=== PATIENT | female | born 1985 | race Caucasian/White ===

== ENCOUNTER 2016-10-14 09:37 | Emergency (ER) | payer BC, OTHER ==
[2016-10-14 11:52] VITALS: BP 126/78
--- NOTE | 2016-10-14 22:36 | ER ---
DATE SEEN: 10/14/2016 TIME SEEN: The patient was seen at 1000 hours. CHIEF COMPLAINT: Vaginal bleeding. HISTORY OF PRESENT ILLNESS: This 30-year-old 3, para 1-1-0-1, last menstrual period 08/09/2016 (9 weeks ) had intercourse this morning and resulted in nonpainful postcoital vaginal bleeding, small amount. She is wondering if she is losing her . PAST MEDICAL HISTORY: Significant for 1 miscarriage. She states she is O negative. MEDICATIONS: She is on dextroamphetamine - Adderall for probable ADHD. SOCIAL HISTORY: Works at [employer]. Does not smoke or drink alcohol or use street drugs. Otherwise, the patient is healthy. REVIEW OF SYSTEMS: HEENT: Denies headaches, compromise in vision. CARDIORESPIRATORY: Denies chest pain, shortness of breath, or cough. ABDOMEN: Denies abdominal pain, nausea, vomiting, diarrhea, constipation, blood in the stool, black tarry stool, hepatitis, or reflux. : As noted above. MUSCULOSKELETAL: Denies aches, pains, arthralgia, or myalgia. NEUROLOGIC: Negative for stroke, seizures, or head injuries. PSYCHIATRIC: Negative. PHYSICAL EXAMINATION: VITAL SIGNS: Blood pressure 120/76, heart rate is 97, respirations 18, oxygen saturation 100% on room, and temperature 36.9 degrees centigrade. The patient's weight 81.6 kg. BMI 27.4. GENERAL: Alert woman, somewhat tearful and anxious. HEENT: She has notable to 2 studs of lip piercing in right bilateral lower lip. PERRLA intact. Pharynx without abnormality. Mucosa is moist. NECK: No cervical adenopathy. No thyromegaly. LUNGS: Clear to auscultation without rales, rhonchi, or wheezes. HEART: S1, S2. No irregular rate and rhythm. ABDOMEN: Soft. No guarding. No abdominal discomfort. No CVA percussion tenderness. PELVIC: Not performed. The patient would prefer to have an ultrasound. EXTREMITIES: Lower extremities without abnormality. Deep tendon reflexes normal in upper and lower extremities. Cranial nerves 2 through 12 intact. Oriented x3. PSYCHIATRIC: The patient is sad and is intermittently tearful. LABORATORY DATA: Pelvic ultrasound was performed, blighted ovum noted. Serum HCG was 1800. Urine, occasional bacteria, moderate squamous epithelial cells, 20 wbc's, 50 to 75 rbc's, large occult blood, and specific gravity 0.010. ASSESSMENT: 1. Incomplete with vaginal bleeding. 2. Blighted ovum. 3. Vaginal bleeding secondary to incomplete . 4. The patient is not O negative, she is O positive. The patient's blood was typed and screen. PLAN: 1. The patient's status of incomplete discussed with her, but she was quite sad and depressed over this, and had cried a great deal. 2. Follow up with doctor in 2 days. Repeat the quantitative serum HCG. 3. The patient is not O negative, so will not require RhoGAM the patient. 4. It is possible that the patient's HCG may climb, it is rare that does happen, but it can climb in spite of being low at this juncture in her presumed . /[id number] 2018 SOHAN/BURKE
--- NOTE | 2016-10-15 12:06 | US ---
INDICATION: First trimester bleeding. OB ULTRASOUND FIRST TRIMESTER: Utilizing transabdominal probe, multiple ultrasonic images were obtained, revealing the right ovary to measure 3.29 x 1.60 cm. The left ovary measured 2.35 x 1.52 cm. Neither ovary remarkable in appearance. No mass lesions or free fluid collections were suggested. No adnexal mass lesions specifically were seen. The uterus measured 8.52 x 4.24 x 6 cm. What appears to be an intrauterine gestation is noted. A definite pole was not seen. Endovaginal probe ultrasound will be necessary for further evaluation. IMPRESSION: Apparent intrauterine gestation. No definite pole identified - endovaginal probe ultrasound will be necessary for further evaluation. INDICATION: First trimester bleeding, unable to see pole. OB ULTRASOUND TRANSVAGINAL: Utilizing transvaginal probe, multiple ultrasonic images revealed no adnexal mass lesions or free fluid collections. Gestational sac size - intrauterine and in the fundal area - was compatible with approximately 6 weeks 5 days gestational age compared with the LMP GA of 9 weeks 3 days. This is a big discrepancy. Despite use of endovaginal probe, a pole was not identified. Also no heart motion could be identified. IMPRESSION: No definite pole or heart motion identified in this delayed - 6 week 5 day - intrauterine gestational sac. Findings suggest "blighted ovum"/early demise. MTDD
== END 2016-10-14 12:30 | disposition home or self-care (01) ==
LOC: FB.ED 09:37
DX: O03.4 Incomplete spontaneous abortion without complication (principal)
CPT/HCPCS: 36415; 76801; 76802; 76817; 76857; 81001; 84702; 86850; 86900; 86901; 99284

== ENCOUNTER 2016-10-29 07:01 | Day surgery (SDC) | payer OTHER ==
--- NOTE | 2016-10-28 18:51 | PREOP ---
ADMISSION DATE: 10/29/2016 CHIEF COMPLAINT: Incomplete miscarriage with persistent cramps and bleeding. HISTORY OF PRESENT ILLNESS: This patient is a 30-year-old female, 3, para 1-1-0-1, who was diagnosed with a blighted ovum on 10/15/2015 via ultrasound, since then she has had serial beta HCG levels that have declined and a repeat ultrasound on 10/22/2016 revealed persistent blighted ovum with tissue. The patient is continuing to have cramps, intermittent having bleeding and to the point now where she would like to "move on with her life." Risks and benefits of the surgical intervention have been discussed in detail and she would like to proceed. She was therefore scheduled for D and C. She has had no fever, chills, or night sweats. Denies any dysuria or hematuria. She at times pass clots, but does not feel like she has been passing any tissue. She has rather severe cramps at times that even with the use of ibuprofen are unrelenting. She denies any melena, hematochezia, hematemesis, hemoptysis, or hematuria. Has had no other complaints. She takes Adderall in the extended release form 30 mg daily and then 10 mg of immediate release in the afternoon, Zoloft 50 mg daily, and vitamin daily. ALLERGIES: Lamictal. SOCIAL HISTORY: She does not smoke or use alcohol. PAST MEDICAL HISTORY: Pertinent that she has had a previous miscarriage that resolved without surgical intervention a number of years ago. She had a section delivery on 04/2015 and has had a previous wisdom teeth extraction. FAMILY HISTORY: Father at age 41 from a farming accident. He apparently was otherwise in good health. Mother is age 57 and in good health. She has two living brothers, age 29 and 36, both in good health. REVIEW OF SYSTEMS: Full review of systems was negative except for that mentioned above. PHYSICAL EXAMINATION: VITAL SIGNS: At this time showed her to be afebrile. Blood pressure 108/66, pulse is 90 and regular, weight was 187.7 pounds. GENERAL: Well-developed, well-nourished female, in no acute distress. HEENT: Unremarkable. Mucous membranes are pink and moist. Thyroid was not enlarged. Trachea is midline. CHEST: Clear to auscultation and percussion. CARDIOVASCULAR: Revealed a normal S1 and S2 without murmur, rub, or gallop. ABDOMEN: Soft with a healed Pfannenstiel incisional scar. There was no specific point tenderness. No rebound or rigidity. Bowel sounds are normal. EXTREMITIES: Without clubbing, no edema. No ulcerations or areas of breakdown were noted. NEUROLOGIC: She was intact. IMPRESSION: Incomplete spontaneous miscarriage. PLAN: We discussed the risks and benefits of the surgical intervention at length and after long discussion, she agreed, she would like to proceed with this surgical intervention and not wait any longer to "get back to her life." The surgery was scheduled for tomorrow at 0800 hours and she will be kept n.p.o. after midnight. She will arrive at the hospital at 0645 hours for preparation and then proceed from there. /[id number] /BURKE
[2016-10-29] MEDS ORDERED: Lactated Ringers 1,000 ML IV SCH (07:22)
[2016-10-29] MEDS ORDERED: Sodium Chloride 0.9% 10 ML Syringe FLUSH PRN (07:22)
[2016-10-29] MEDS ORDERED: Midazolam 1 MG/ML 2 ML SDV IV ONE (08:00)
[2016-10-29] MEDS ORDERED: Ondansetron 4 MG/2 ML SDV IVPUSH ONE (08:00)
[2016-10-29] MEDS ORDERED: fentaNYL 100 MCG/2 ML SDV IV ONE (08:00)
[2016-10-29] MEDS ORDERED: Ketorolac 30 MG/ML SDV IVPUSH ONE (08:00)
[2016-10-29] MEDS ORDERED: Dexamethasone 4 MG/ML 5 ML MDV IVPUSH ONE (08:00)
[2016-10-29] MEDS ORDERED: Ketamine 500 mg/10 ML MDV IV ONE (08:00)
[2016-10-29] MEDS ORDERED: Propofol 200 MG/20 ML SDV IV ONE (08:00)
[2016-10-29 10:16] VITALS: BP 116/64
--- NOTE | 2016-10-29 12:13 | OR ---
DATE OF OPERATION: 10/30/2015 SURGEON: Fernando Smith MD PREOPERATIVE DIAGNOSIS: Incomplete spontaneous . POSTOPERATIVE DIAGNOSIS: Incomplete spontaneous . PROCEDURE: D and C. PROCEDURE IN DETAIL: After time-out was taken to identify the patient, patient date of , allergies, and appropriate procedure, she was placed in a dorsal lithotomy position under MAC anesthesia. The perineum was prepped and draped in a sterile manner. Bimanual exam was done revealing approximately eight-sized anteverted uterus with no adnexal masses. The cervix would easily accept a fingertip. Weighted vaginal speculum was placed and there was some placental tissue that was protruding out of the vagina, this was removed with forceps and sent to Pathology. The uterus was then sounded to 9 cm. The cervix would easily accept a #12 Hegar dilator. A 10 mm suction curette was then placed with a blunt-tipped and suction curettage was undertaken removing mild to moderate amount of tissue. A sharp curette was then placed into the uterine cavity and gently used to explore the entire cavity with very gentle curettage being undertaken. The familiar grating feeling was noted throughout the entire uterine cavity. The 10 mm suction curette was then placed back into the intrauterine space and suction was carried out with little or no tissue, whatsoever removed. Bleeding was well controlled. All instruments were removed and bimanual exam was redone. Uterus is approximately 6 to 8 weeks in size, again anteverted, and no adnexal masses or other abnormalities were noted. The sponge and needle counts were all correct x2, and the patient was awakened, alert and oriented. She tolerated the procedure well. Estimated blood loss was less than 25 mL. All instruments and sponges along with needles were accounted for. /[id number] /MODL
== END 2016-10-29 09:40 | disposition home or self-care (01) ==
LOC: FB.SDS 07:01
PROVIDERS: ATTEND Family Medicine
DX: O03.4 Incomplete spontaneous abortion without complication (principal); Z88.8 Allergy status to other drugs, medicaments and biological substances; Z98.890 Other specified postprocedural states
CPT/HCPCS: 59812; 88305; J1100; J1885; J2250; J2405; J2704; J3010; J7120

== ENCOUNTER 2017-10-11 19:19 | Inpatient (IN) | payer BC, MEDICAID ==
[2017-10-11] MEDS ORDERED: Nalbuphine 10 MG/1 ML Vial IM ONE (21:33)
[2017-10-11] MEDS ORDERED: Scopolamine 1.5 MG Transdermal Patch TRDERM ONE (21:53)
[2017-10-11] MEDS ORDERED: Citric Acid/Sodium Citrate Solution 30 ML Cup PO ONE (21:54)
[2017-10-11] MEDS ORDERED: Azithromycin 500 MG in Sodium Chloride 0.9% 250 ML IV ONE (22:11)
[2017-10-11] MEDS ORDERED: ceFAZolin 2 GM in Premix Bag 1 BAG IV ONE (22:11)
--- NOTE | 2017-10-11 22:13 | PCM.SN ---
- Free Text/Narrative Note: 31 yo wf who is 38W4D due to for a repeat c section on Tuesday. arrived tonight in active labor. for a c section. procedure and risks explained to the pt to include bleeding, infection injury to bowel, bladder and blood vessel as well as the baby. she asks us to proceed. all questions answered.
--- NOTE | 2017-10-11 22:25 | PCM.LDHP ---
L&D History of Present Illness - General Date of Service: 10/11/17 Admit Problem/Dx: Patient Status Order with Admit Dx/Problem 10/11/17 19:28 Admission Status [Patient Status] [ADT] Routine 10/11/17 21:35 Admission Status [Patient Status] [ADT] Routine Admission Diagnosis/Problem Admission Diagnosis/Problem -related examination Source of Information: Patient History Limitations: Reports: No Limitations - History of Present Illness Introduction:: 31 yo at 38weeks +,who presents in labor.Regular contractions. Scheduled for c section on 10/14/2017. Has stable ADHD on Meds.Upper normal ERAN on last US.Previous C section Timing/Duration: Reports: minutes: (2-3) Location, : Reports: Abdomen Severity: Moderate Context: Denies: Sick Contact - Related Data Allergies/Adverse Reactions: Allergies Allergy/AdvReac Type Severity Reaction Status Date / Time lamotrigine [From Lamictal] Allergy Rash Verified 10/11/17 21:55 Home Medications: Home Meds PNV95/Ferrous Fumarate/FA [ Tablet] 1 each PO DAILY 04/20/15 [History] Dextroamphetamine/Amphetamine [Adderall Xr 30 mg Capsule] 1 cap PO DAILY [History] Ibuprofen 600 mg PO Q6H #30 tablet 10/29/16 [Rx] Sertraline [Zoloft] 50 mg PO DAILY 10/29/16 [History] Past Medical History - Past Health History Medical/Surgical History: Denies Medical/Surgical History 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 Dermatologic History: Reports: Eczema - Infectious Disease History Infectious Disease History: Reports: Chicken Pox - Past Surgical History Female Surgical History: Reports: Section Social & Family History - Family History Family Medical History: Noncontributory Respiratory: Reports: COPD OBGYN: Reports: Neurological: Reports: CVA Psychiatric: Reports: Other (See Below) Other Psychiatric Family History: Alcholism Endocrine/Metabolic: Reports: Diabetes, Type I Oncologic: Reports: Non-Hodgkin's Lymphoma - Tobacco Use Smoking Status *Q: Former Smoker Years of Tobacco use: 10 Used Tobacco, but Quit: Yes Month/Year Tobacco Last Used: cannot remember - Caffeine Use Caffeine Use: Reports: None - Recreational Drug Use Recreational Drug Use: No H&P Review of Systems - Review of Systems: Review Of Systems: ROS reveals no pertinent complaints other than HPI. L&D Exam - Exam Exam: See Below - Vital Signs Vital Signs: Last Vital Signs Temp Pulse 87 10/11/17 19:28 Resp 17 10/11/17 19:28 BP 147/89 H 10/11/17 19:28 Pulse Ox 98 10/11/17 19:28 Weight: 108.409 kg - OB Specific Contraction Intensity: Mild to Moderate Movement: Active Heart Tones: Present Heart Rate (FHR) Variability: Moderate (6-25 bmp) - Jose Score Jose Score Cervix Position: Midposition Jose Score Effacement: 31-50% Jose Score Dilation: 1-2 cm Jose Score Infant's Station: -2 - Exam General: Alert, Oriented HEENT: PERRLA, Conjunctiva Clear, EACs Clear, EOMI, Hearing Intact, Mucosa Moist & [place], Nares Patent, Normal Nasal Septum, Posterior Pharynx Clear, TMs Clear Neck: Supple, Trachea Midline Lungs: Clear to Auscultation, Normal Respiratory Effort Cardiovascular: Regular Rate, Regular Rhythm GI/Abdominal Exam: Normal Bowel Sounds, Soft, Non-Tender, No Organomegaly, No Distention, No Abnormal Bruit, No Mass, Pelvis Stable Rectal Exam: Normal Exam, Normal Rectal Tone Genitourinary: Normal external exam, Normal bimanual exam, Normal speculum exam Back Exam: Normal Inspection, Full Range of Motion Extremities: Normal Inspection, Normal Range of Motion, Non-Tender, No Pedal Edema, Normal Capillary Refill Skin: Warm, Dry, Intact Neurological: Cranial Nerves Intact, Reflexes Equal Bilateral Psychiatric: Alert, Normal Affect, Normal Mood - Patient Data Lab Results Last 24 hrs: Laboratory Results - last 24 hr 10/11/17 Range/Units 20:35 Urine Color Yellow (YELLOW) Urine Appearance Clear (CLEAR) Urine pH 8.0 H (5.0-6.5) Ur Specific [place]ton 1.010 (1.010-1.025) Urine Protein Negative (NEGATIVE) mg/dL Urine Glucose (UA) Normal (NEGATIVE) mg/dL Urine Ketones Negative (NEGATIVE) mg/dL Urine Occult Blood Large H (NEGATIVE) Urine Nitrite Negative (NEGATIVE) Urine Bilirubin Negative (NEGATIVE) Urine Urobilinogen Normal (NEGATIVE) mg/dL Ur Leukocyte Esterase Negative (NEGATIVE) Urine RBC 0-5 (0) Urine WBC 0-5 (0) Ur Squamous Epith Cells Few H (NS,R,O) Urine Bacteria Rare H (NS) - Problem List (1) Term SNOMED Code(s): 31797906 ICD Code: Z34.80 - ENCOUNTER FOR SUPRVSN OF NORMAL , UNSP TRIMESTER Status: Acute Current Visit: Yes (2) Previous section SNOMED Code(s): 521013070 ICD Code: Z98.891 - HISTORY OF UTERINE SCAR FROM PREVIOUS SURGERY Status: Acute Current Visit: Yes (3) ADHD SNOMED Code(s): 454094319 ICD Code: F90.9 - ATTENTION-DEFICIT HYPERACTIVITY DISORDER, UNSPECIFIED TYPE Status: Acute Current Visit: Yes Qualifiers: Attention deficit-hyperactivity disorder type: combined inattentive- hyperactive Qualified Code(s): F90.2 - Attention-deficit hyperactivity disorder, combined type (4) H/O depression, currently SNOMED Code(s): 436810803 ICD Code: O99.89 - OTH DISEASES AND CONDITIONS COMPL PREG/CHLDBRTH; Z86.59 - PERSONAL HISTORY OF OTHER MENTAL AND BEHAVIORAL DISORDERS Status: Acute Current Visit: Yes Problem List Initiated/Reviewed/Updated: Yes Orders Last 24hrs: Active Orders 24 hr Category Date Time Status Admission Status [Patient Status] [ADT] Routine ADT 10/11/17 19:28 Active Admission Status [Patient Status] [ADT] Routine ADT 10/11/17 21:35 Active URINALYSIS W/MICROSCOPIC [UA W/MICROSCOPIC] [URIN] Lab 10/11/17 20:35 Ordered Routine Azithromycin [Zithromax] 500 mg Med 10/11/17 22:11 Active Sodium Chloride 0.9% [Normal Saline] 250 ml IV ONETIME ceFAZolin [Ancef] 2 gm Med 10/11/17 22:11 Active Premix Bag 1 bag IV ONETIME Medication Orders Azithromycin 500 mg/ Sodium (Chloride) 250 mls @ 250 mls/hr IV ONETIME ONE Stop: 10/11/17 23:10 Cefazolin Sodium/Dextrose 2 gm (/ Premix) 50 mls @ 100 mls/hr IV ONETIME ONE Stop: 10/11/17 22:40 Assessment/Plan Comment:: I discussed need for a repat C section. I beleive she is in labor,no need to wait for 10/14/2017. Proceed to OR tonight.
[2017-10-11] MEDS ORDERED: Lactated Ringers 1,000 ML IV ONE (22:30)
[2017-10-11] MEDS ORDERED: Morphine PF 10 MG/10 ML SDV ONE (22:30)
[2017-10-11] MEDS ORDERED: Ondansetron 4 MG/2 ML SDV IV PRN (23:50)
[2017-10-11] MEDS ORDERED: Naloxone 0.4 MG/ML SDV IVPUSH PRN (23:50)
[2017-10-11] MEDS ORDERED: ePHEDrine 50 MG/ML SDV IVPUSH PRN (23:50)
--- NOTE | 2017-10-11 23:59 | PCM.OPNOTE ---
- General Post-Op/Procedure Note Date of Surgery/Procedure: 10/11/17 Operative Procedure(s): c section Findings: term male CODY presentation APGARS 8/9 Pre Op Diagnosis: hx of previous c section Post-Op Diagnosis: Same Anesthesia Technique: Spinal Primary Surgeon: Dmitry Londono Secondary Surgeon: Lester Sylvester Anesthesia Provider: Van Jung Pathology: plancenta Output, Urine Amount: 300 EBL in mLs: 500 Complications: None Condition: Good Free Text/Narrative:: see dictation
[2017-10-12] MEDS: Ketorolac 30 MG/ML SDV IVPUSH SCH ×3 (01:16→09:04)
--- NOTE | 2017-10-12 01:27 | OR ---
DATE OF OPERATION: 10/12/2017 SURGEON: Dmitry Londono MD CANDLE MAKER: Lester Sylvester MD PROCEDURE PERFORMED: section. PREOPERATIVE DIAGNOSES: 1. Term infant. 2. History of previous section. POSTOPERATIVE DIAGNOSES: 1. Term . 2. History of previous section. INDICATIONS FOR PROCEDURE: This is a 31-year-old white female, who is a G4, P2, spontaneous AB 2 white female, who presents at 38 weeks 4 days gestation in labor. She is scheduled for a repeat on Tuesday, but as she was in labor this evening, it was felt that we should proceed with our section at this point. DESCRIPTION OF OPERATION: After an excellent spinal anesthetic was administered, the patient was prepped and draped in the usual sterile manner. After a pinch test to ensure excellent anesthesia, an incision was made through the previous scar. The underlying subcu fat was divided using electrocautery. The fascia was exposed, incised, and transected out laterally involving the external and internal oblique muscles. The midline was grasped, elevated, and incised, and the abdominal cavity was entered. Using sharp dissection, a bladder flap was raised, and the bladder was retracted inferiorly. An incision was then made at the lower section of the uterus. A large amount of amniotic fluid was obtained. The presentation was noted to be CODY. The head was delivered. The nuchal cord was reduced, and the anterior and then posterior shoulders were delivered. After aspirating the oropharyngeal airway, the umbilical cord was clamped and divided, and the child was passed off the field. After obtaining a sample of cord blood, the placenta was delivered and passed off the field. Extraplacental membranes were also removed, and the uterus was wiped clean. A Pitocin drip was started, and the uterus incision was closed in 2 layers with #1 Vicryl, first consisting of a running interlocking suture, followed by a running Lembert suture. After assuring excellent hemostasis, the pelvis was irrigated, and the uterus was returned to normal anatomic position. The fascia was then closed with a running #1 Vicryl. The subcu fat and Sukumar fascia were approximated with a running #3 Vicryl, and a #3 Vicryl was used to close the skin. COUNTS: Needle, sponge, and instrument counts were reported as correct. SCORE: Reported to be 8 and 9 nine respectively. ESTIMATED BLOOD LOSS: 500 mL. URINE OUTPUT: 300 mL. FLUIDS: She received a total of 1200 mL of crystalloid. /[id number] AMELIE/BURKE JOHNSON
[2017-10-12] MEDS: Lactated Ringers 1,000 ML IV SCH ×2 (03:00→09:36)
[2017-10-12] MEDS ORDERED: Ketorolac 30 MG/ML SDV IVPUSH PRN (09:34)
[2017-10-12] MEDS: Sertraline 50 MG Tab PO SCH (09:35)
--- NOTE | 2017-10-12 11:53 | PCM.PNPP ---
- General Info Date of Service: 10/12/17 - Review of Systems General: Reports: No Symptoms Pulmonary: Reports: No Symptoms Cardiovascular: Reports: No Symptoms Gastrointestinal: Denies: Abdominal Pain, Flatus - Patient Data Vital Signs - Most Recent: Last Vital Signs Temp 36.7 C 10/12/17 04:00 Pulse 87 10/12/17 04:00 Resp 17 10/12/17 04:00 BP 142/84 H 10/12/17 04:00 Pulse Ox 98 10/12/17 04:00 Weight - Most Recent: 108.409 kg I&O - Last 24 Hours: Intake & Output 10/11/17 10/12/17 10/12/17 22:59 06:59 14:59 Intake Total 806 400 Output Total 850 Balance -44 400 Lab Results - Last 24 Hours: Laboratory Results - last 24 hr 10/11/17 10/12/17 Range/Units 20:35 06:21 WBC 10.6 (4.5-12.0) X10-3/uL RBC 3.60 (3.23-5.20) x10(6)uL Hgb 9.8 L (11.5-15.5) g/dL Hct 29.9 L (30.0-51.3) % MCV 83.0 (80-96) fL MCH 27.3 L (27.7-33.6) pg MCHC 32.8 (32.2-35.4) g/dL RDW 17.0 H (11.5-15.5) % Plt Count 199 (125-369) X10(3)uL MPV 9.6 (7.4-10.4) fL Add Manual Diff Yes Neutrophils % (Manual) 80 (46-82) % Lymphocytes % (Manual) 19 (13-37) % Monocytes % (Manual) 1 L (4-12) % Urine Color Yellow (YELLOW) Urine Appearance Clear (CLEAR) Urine pH 8.0 H (5.0-6.5) Ur Specific [place] 1.010 (1.010-1.025) Urine Protein Negative (NEGATIVE) mg/dL Urine Glucose (UA) Normal (NEGATIVE) mg/dL Urine Ketones Negative (NEGATIVE) mg/dL Urine Occult Blood Large H (NEGATIVE) Urine Nitrite Negative (NEGATIVE) Urine Bilirubin Negative (NEGATIVE) Urine Urobilinogen Normal (NEGATIVE) mg/dL Ur Leukocyte Esterase Negative (NEGATIVE) Urine RBC 0-5 (0) Urine WBC 0-5 (0) Ur Squamous Epith Cells Few H (NS,R,O) Urine Bacteria Rare H (NS) Med Orders - Current: Current Medications Ephedrine Sulfate (Ephedrine Sulfate) 5 mg IVPUSH ASDIRECTED PRN PRN Reason: Other Lactated Ringer's (Ringers, Lactated) 1,000 mls @ 150 mls/hr IV ASDIRECTED [facility] Last Admin: 10/12/17 09:36 Dose: 150 mls/hr Ketorolac Tromethamine (Toradol) 30 mg IVPUSH Q8H PRN PRN Reason: Pain Stop: 10/16/17 23:53 Last Admin: 10/12/17 10:06 Dose: 30 mg Naloxone HCl (Narcan) 0.1 mg IVPUSH ONETIME PRN PRN Reason: Respiratory Depression Non-Formulary Medication (Dextroamphetamine/Amphetamine [Adderall Xr 30 Mg Capsule]) 1 cap PO DAILY [facility] Ondansetron HCl (Zofran) 4 mg IV Q4H PRN PRN Reason: Nausea/Vomiting Oxycodone/Acetaminophen (Percocet 325-5 Mg) 2 tab PO Q4H PRN PRN Reason: Pain (moderate 4-6) Sertraline HCl (Zoloft) 50 mg PO DAILY [facility] Last Admin: 10/12/17 09:35 Dose: 50 mg Discontinued Medications Citric Acid/Sodium Citrate (Bicitra Solution) 30 ml PO ONETIME ONE Stop: 10/11/17 21:55 Last Admin: 10/11/17 22:20 Dose: 30 ml Azithromycin 500 mg/ Sodium (Chloride) 250 mls @ 250 mls/hr IV ONETIME ONE Stop: 10/11/17 23:10 Last Admin: 10/11/17 22:55 Dose: 250 mls/hr Cefazolin Sodium/Dextrose 2 gm (/ Premix) 50 mls @ 100 mls/hr IV ONETIME ONE Stop: 10/11/17 22:40 Last Admin: 10/11/17 22:22 Dose: 100 mls/hr Ketorolac Tromethamine (Toradol) 30 mg IVPUSH Q8H [facility] Stop: 10/16/17 23:53 Last Admin: 10/12/17 09:04 Dose: Not Given Nalbuphine HCl (Nubain) 10 mg IM ONETIME ONE Stop: 10/11/17 21:34 Last Admin: 10/11/17 21:45 Dose: Not Given Scopolamine (Transderm-Scop) 1.5 mg TRDERM ONETIME ONE Stop: 10/11/17 21:54 Last Admin: 10/11/17 22:19 Dose: 1.5 mg - Infant Interaction Support Person: - Recovery Exam Fundal Tone: Firm Fundal Level: 1 Fingerbreadths Above Umbilicus Fundal Placement: Midline Lochia Amount: Small Lochia Color: Rubra/Red Perineum Description: Intact, Minimal Bruising/Swelling, Edematous Episiotomy/Laceration: None Bladder Status: Indwelling Catheter in Place Urinary Elimination: Indwelling Catheter - Exam Lungs: Clear to Auscultation, Normal Respiratory Effort Cardiovascular: Regular Rate, Regular Rhythm GI/Abdominal Exam: Soft, Abnormal Bowel Sounds (hypoactive ) Skin: Warm, Dry, Intact Wound/Incisions: Dressing Dry and Intact - Problem List Review Problem List Initiated/Reviewed/Updated: Yes - My Orders Last 24 Hours: My Active Orders 10/11/17 23:45 Lactated Ringers [Ringers, Lactated] 1,000 ml IV ASDIRECTED 10/11/17 23:50 Ambulate [RC] PER UNIT ROUTINE Communication Order [RC] Per Unit Routine Communication Order [RC] Per Unit Routine Communication Order [RC] Per Unit Routine Cooling Warming Measures [RC] ASDIRECTED Intake and Output [RC] Q4H Notify Provider Vital Signs [RC] ASDIRECTED Vital Signs [RC] Q4HR Wound Care [RC] QSHIFT Acetaminophen/oxyCODONE [Percocet 325-5 MG] 2 tab PO Q4H PRN Naloxone [Narcan] 0.1 mg IVPUSH ONETIME PRN Ondansetron [Zofran] 4 mg IV Q4H PRN ePHEDrine [ePHEDrine Sulfate] 5 mg IVPUSH ASDIRECTED PRN Assess Lochia [WOMSER] Per Unit Routine Assess Uterine Involution [WOMSER] Per Unit Routine Breast Pump [WOMSER] Per Unit Routine DVT/VTE Prophylaxis Reflex [OM.PC] Routine Sequential Compression Device [OM.PC] Routine Resuscitation Status Routine 10/11/17 23:51 RT Incentive Spirometry [RC] Q2HWA Heat Therapy [OM.PC] Per Unit Routine Ice Therapy [OM.PC] Per Unit Routine 10/11/17 23:53 Antiembolic Devices [RC] .Routine VTE/DVT Education [RC] Click to Edit 10/12/17 09:00 Dextroamphetamine/Amphetamine [Adderall Xr 30 mg Capsule] 1 cap PO DAILY Sertraline [Zoloft] 50 mg PO DAILY 10/12/17 09:34 DC Zavala Catheter [Urinary Catheter Removal] [RC] Per Unit Routine Ketorolac [Toradol] 30 mg IVPUSH Q8H PRN - Assessment Assessment:: doing well - Plan Plan:: zavala d/c'd will decrease iv rate.
[2017-10-12] MEDS: Acetaminophen/oxyCODONE 325-5 MG Tab PO PRN ×2 (16:19→21:03)
[2017-10-13] MEDS: Acetaminophen/oxyCODONE 325-5 MG Tab PO PRN ×2 (04:12→09:09)
[2017-10-13] MEDS: Sertraline 50 MG Tab PO SCH (09:09)
--- NOTE | 2017-10-13 10:39 | PCM.DCSUM1 ---
Discharge Summary - Hospital Course Free Text/Narrative:: Pt admitted in labor and was taken to the OR for a c section. Was passing flatus on the next morning less than 24 hrs. She was advanced from a clear liquid to a regular diet. This she has tolerated. Johnson was removed the day of surgery and she has maintained good u/o since surgery. she is demonstrating adequate pain control today and would like to go home. - Discharge Data Discharge Date: 10/13/17 Discharge Disposition: Home, Self-Care 01 Condition: Good - Discharge Diagnosis/Problem(s) (1) S/P repeat low transverse SNOMED Code(s): 774932624, 869841298, 169384210, 286556348 ICD Code: Z98.891 - HISTORY OF UTERINE SCAR FROM PREVIOUS SURGERY Status: Acute Current Visit: Yes - Patient Summary/Data Operative Procedure(s) Performed: c section Complications: none - Patient Instructions Diet: Usual Diet as Tolerated Activity: No Lifting Over 25 Pounds Driving: Do Not Drive Showering/Bathing: May Shower Wound/Incision, Other: dressing off later today. Notify Provider of: Fever, Increased Pain, Swelling and Redness - Discharge Plan Home Medications: Home Meds PNV95/Ferrous Fumarate/FA [ Tablet] 1 each PO DAILY 04/20/15 [History] Dextroamphetamine/Amphetamine [Adderall Xr 30 mg Capsule] 1 cap PO DAILY [History] Ibuprofen 600 mg PO Q6H #30 tablet 10/29/16 [Rx] Sertraline [Zoloft] 50 mg PO DAILY 10/29/16 [History] Patient Handouts: , Baby Blues, Hand Washing, Easy-to- Read, Delivery, Care After, Care After Delivery, Venous Thromboembolism Prevention Referrals: Dmitry Londono MD [Physician] - 10/18/17 - Discharge Summary/Plan Comment DC Time >30 min.: No - Patient Data Vitals - Most Recent: Last Vital Signs Temp 36.6 C 10/13/17 04:10 Pulse 72 10/13/17 04:10 Resp 18 10/13/17 04:10 BP 122/75 10/13/17 04:10 Pulse Ox 98 10/13/17 04:10 Weight - Most Recent: 108.409 kg I&O - Last 24 hours: Intake & Output 10/12/17 10/13/17 10/13/17 22:59 06:59 14:59 Output Total 1900 Balance -1900 Med Orders - Current: Current Medications Ephedrine Sulfate (Ephedrine Sulfate) 5 mg IVPUSH ASDIRECTED PRN PRN Reason: Other Ketorolac Tromethamine (Toradol) 30 mg IVPUSH Q8H PRN PRN Reason: Pain Stop: 10/16/17 23:53 Last Admin: 10/12/17 10:06 Dose: 30 mg Naloxone HCl (Narcan) 0.1 mg IVPUSH ONETIME PRN PRN Reason: Respiratory Depression Non-Formulary Medication (Dextroamphetamine/Amphetamine [Adderall Xr 30 Mg Capsule]) 1 cap PO DAILY [facility] Last Admin: 10/13/17 09:31 Dose: Not Given Ondansetron HCl (Zofran) 4 mg IV Q4H PRN PRN Reason: Nausea/Vomiting Oxycodone/Acetaminophen (Percocet 325-5 Mg) 2 tab PO Q4H PRN PRN Reason: Pain (moderate 4-6) Last Admin: 10/13/17 09:09 Dose: 2 tab Sertraline HCl (Zoloft) 50 mg PO DAILY [facility] Last Admin: 10/13/17 09:09 Dose: 50 mg Discontinued Medications Citric Acid/Sodium Citrate (Bicitra Solution) 30 ml PO ONETIME ONE Stop: 10/11/17 21:55 Last Admin: 10/11/17 22:20 Dose: 30 ml Azithromycin 500 mg/ Sodium (Chloride) 250 mls @ 250 mls/hr IV ONETIME ONE Stop: 10/11/17 23:10 Last Admin: 10/11/17 22:55 Dose: 250 mls/hr Cefazolin Sodium/Dextrose 2 gm (/ Premix) 50 mls @ 100 mls/hr IV ONETIME ONE Stop: 10/11/17 22:40 Last Admin: 10/11/17 22:22 Dose: 100 mls/hr Lactated Ringer's (Ringers, Lactated) 1,000 mls @ 125 mls/hr IV ASDIRECTED [facility] Last Admin: 10/12/17 09:36 Dose: 150 mls/hr Ketorolac Tromethamine (Toradol) 30 mg IVPUSH Q8H [facility] Stop: 10/16/17 23:53 Last Admin: 10/12/17 09:04 Dose: Not Given Nalbuphine HCl (Nubain) 10 mg IM ONETIME ONE Stop: 10/11/17 21:34 Last Admin: 10/11/17 21:45 Dose: Not Given Scopolamine (Transderm-Scop) 1.5 mg TRDERM ONETIME ONE Stop: 10/11/17 21:54 Last Admin: 10/11/17 22:19 Dose: 1.5 mg
[2017-10-13] MEDS ORDERED: Bisacodyl 10 MG Supp RECTAL ONE (10:40)
--- NOTE | 2017-10-13 10:42 | PCM.PNPP ---
- General Info Date of Service: 10/13/17 Functional Status: Reports: Pain Controlled, Tolerating Diet, Ambulating, Urinating - Review of Systems General: Reports: No Symptoms Pulmonary: Reports: No Symptoms Cardiovascular: Reports: No Symptoms Gastrointestinal: Reports: No Symptoms - Patient Data Vital Signs - Most Recent: Last Vital Signs Temp 36.6 C 10/13/17 04:10 Pulse 72 10/13/17 04:10 Resp 18 10/13/17 04:10 BP 122/75 10/13/17 04:10 Pulse Ox 98 10/13/17 04:10 Weight - Most Recent: 108.409 kg I&O - Last 24 Hours: Intake & Output 10/12/17 10/13/17 10/13/17 22:59 06:59 14:59 Output Total 1900 Balance -1900 Med Orders - Current: Current Medications Ephedrine Sulfate (Ephedrine Sulfate) 5 mg IVPUSH ASDIRECTED PRN PRN Reason: Other Ketorolac Tromethamine (Toradol) 30 mg IVPUSH Q8H PRN PRN Reason: Pain Stop: 10/16/17 23:53 Last Admin: 10/12/17 10:06 Dose: 30 mg Naloxone HCl (Narcan) 0.1 mg IVPUSH ONETIME PRN PRN Reason: Respiratory Depression Non-Formulary Medication (Dextroamphetamine/Amphetamine [Adderall Xr 30 Mg Capsule]) 1 cap PO DAILY [facility] Last Admin: 10/13/17 09:31 Dose: Not Given Ondansetron HCl (Zofran) 4 mg IV Q4H PRN PRN Reason: Nausea/Vomiting Oxycodone/Acetaminophen (Percocet 325-5 Mg) 2 tab PO Q4H PRN PRN Reason: Pain (moderate 4-6) Last Admin: 10/13/17 09:09 Dose: 2 tab Sertraline HCl (Zoloft) 50 mg PO DAILY [facility] Last Admin: 10/13/17 09:09 Dose: 50 mg Discontinued Medications Citric Acid/Sodium Citrate (Bicitra Solution) 30 ml PO ONETIME ONE Stop: 10/11/17 21:55 Last Admin: 10/11/17 22:20 Dose: 30 ml Azithromycin 500 mg/ Sodium (Chloride) 250 mls @ 250 mls/hr IV ONETIME ONE Stop: 10/11/17 23:10 Last Admin: 10/11/17 22:55 Dose: 250 mls/hr Cefazolin Sodium/Dextrose 2 gm (/ Premix) 50 mls @ 100 mls/hr IV ONETIME ONE Stop: 10/11/17 22:40 Last Admin: 10/11/17 22:22 Dose: 100 mls/hr Lactated Ringer's (Ringers, Lactated) 1,000 mls @ 125 mls/hr IV ASDIRECTED [facility] Last Admin: 10/12/17 09:36 Dose: 150 mls/hr Ketorolac Tromethamine (Toradol) 30 mg IVPUSH Q8H [facility] Stop: 10/16/17 23:53 Last Admin: 10/12/17 09:04 Dose: Not Given Nalbuphine HCl (Nubain) 10 mg IM ONETIME ONE Stop: 10/11/17 21:34 Last Admin: 10/11/17 21:45 Dose: Not Given Scopolamine (Transderm-Scop) 1.5 mg TRDERM ONETIME ONE Stop: 10/11/17 21:54 Last Admin: 10/11/17 22:19 Dose: 1.5 mg - Interaction Disposition, : in Room with Family Support Person: - Recovery Exam Fundal Tone: Firm Fundal Level: At Umbilicus Fundal Placement: Midline Lochia Amount: Small Lochia Color: Rubra/Red Perineum Description: Intact, Minimal Bruising/Swelling, Edematous Episiotomy/Laceration: None Bladder Status: Voiding Urinary Elimination: Voided - Exam General: Alert, Oriented HEENT: Pupils Equal Lungs: Clear to Auscultation, Normal Respiratory Effort Cardiovascular: Regular Rate, Regular Rhythm GI/Abdominal Exam: Normal Bowel Sounds, Soft, Non-Tender Skin: Warm, Dry, Intact Wound/Incisions: Dressing Dry and Intact - Problem List & Annotations (1) S/P repeat low transverse SNOMED Code(s): 032893424, 975644567, 195731031, 379035124 Code(s): Z98.891 - HISTORY OF UTERINE SCAR FROM PREVIOUS SURGERY Status: Acute Current Visit: Yes - Problem List Review Problem List Initiated/Reviewed/Updated: Yes - My Orders Last 24 Hours: My Active Orders 10/12/17 17:04 Convert IV to Saline Lock [OM.PC] Routine 10/13/17 10:40 Bisacodyl [Dulcolax] 10 mg RECTAL ONETIME ONE 10/13/17 Dinner Regular Diet [DIET] - Assessment Assessment:: ready for discharge - Plan Plan:: dulcolox suppository discharge today.
[2017-10-13 10:47] VITALS: BP 122/79
== END 2017-10-13 14:10 | disposition home or self-care (01) | DRG 540 ==
LOC: FB.OB 19:19 → INTOOBSV 19:19 → OBSVTOIN 21:35 → FB.OB 21:35
PROVIDERS: ADMIT Surgery; ATTEND Family Medicine
PROC: 10D00Z1 Extraction of Products of Conception, Low, Open Approach (ICD-10-PCS; principal; 2017-10-11)
DX: O34.211 Maternal care for low transverse scar from previous cesarean delivery (principal); O69.1XX0 Labor and delivery complicated by cord around neck, with compression, not applicable or unspecified; F90.9 Attention-deficit hyperactivity disorder, unspecified type; Z3A.38 38 weeks gestation of pregnancy; Z37.0 Single live birth; Z79.899 Other long term (current) drug therapy; Z88.8 Allergy status to other drugs, medicaments and biological substances; Z87.891 Personal history of nicotine dependence; Z86.59 Personal history of other mental and behavioral disorders
CPT/HCPCS: 36415; 81001; 85025; 94150; 99211; A9270-GY; J0456; J0690; J1885; J2270; J7050; J7120

== ENCOUNTER 2019-03-03 19:28 | Inpatient (IN) | payer BC, MEDICAID ==
[2019-03-03] MEDS ORDERED: ceFAZolin 1 GM Vial IVPUSH STA (21:16)
[2019-03-03] MEDS ORDERED: Citric Acid/Sodium Citrate Solution 30 ML Cup PO STA (21:16)
[2019-03-03] MEDS ORDERED: Scopolamine 1.5 MG Transdermal Patch TRDERM ONE (21:17)
[2019-03-03] MEDS ORDERED: Lactated Ringers 1,000 ML IV SCH (21:30)
[2019-03-03] MEDS ORDERED: Sodium Chloride 0.9% 10 ML Syringe FLUSH PRN (21:33)
[2019-03-03] MEDS ORDERED: diphenhydrAMINE 50 MG/ML SDV IVPUSH PRN (23:12)
[2019-03-03] MEDS ORDERED: Naloxone 0.4 MG/ML SDV IVPUSH PRN (23:12)
[2019-03-03] MEDS ORDERED: ePHEDrine 50 MG/ML SDV IVPUSH PRN (23:12)
[2019-03-04] MEDS ORDERED: Nalbuphine 10 MG/1 ML Vial IVPUSH PRN (00:01)
[2019-03-04] MEDS ORDERED: Naloxone 0.4 MG/ML SDV IVPUSH PRN (00:01)
[2019-03-04] MEDS ORDERED: Ondansetron 4 MG/2 ML SDV IVPUSH PRN (00:01)
[2019-03-04] MEDS ORDERED: diphenhydrAMINE 50 MG/ML SDV IV PRN (00:01)
--- NOTE | 2019-03-04 02:45 | OR ---
DATE OF OPERATION: 03/03/2019 SURGEON: Lester Sylvester MD GRAVEL INSPECTOR: Anthony Pfeiffer MD. PREOPERATIVE DIAGNOSES: 1. Intrauterine at 37 weeks and 4 days. 2. Polyhydramnios. 3. LGA (vlxbz-ppa-xqhazwgymus-age). 4. Adderall use in . 5. Repeat section. POSTOPERATIVE DIAGNOSES: 1. Intrauterine at term. 2. Repeat lower uterine segment section. 3. Polyhydramnios. 4. LGA (huvsy-iay-qixheuodaws-age). PROCEDURE PERFORMED: Repeat low transverse section. ANESTHESIA: Epidural. ESTIMATED BLOOD LOSS: 650 mL. COMPLICATIONS: None. FINDINGS: 1. A female infant in cephalic presentation. 2. Extensive adhesions. INDICATIONS: This is a 33-year-old female who came in to Labor at 37 and half weeks. She was scheduled for repeat next week. She has had polyhydramnios during the and has used Adderall during . She has otherwise been unremarkable. The procedure was described to the patient in detail including the possible risks of bleeding, infection, injury to the surrounding organs, and possible need for further surgery. Informed consent was obtained accordingly. DESCRIPTION OF PROCEDURE: She was taken to the OR, where epidural anesthesia was placed and found to be adequate. She was prepped and draped in the usual sterile fashion. A Pfannenstiel incision was made along the previous scar and carried to the underlying layer of fascia using Smith scissors. The fascia was incised in the middle by scalpel and the underlying rectus muscles were dissected off bluntly and using Smith scissors repeating that in the inferior portion as well. The rectus muscle was dissected in the middle and the uterus was entered bluntly. A bladder blade was inserted and bladder reflection of the vesicouterine peritoneum was placed. Using a knife, a lower uterine transverse incision was made along the lower portion of the uterus. This was extended using the surgeon's fingers. The baby's head was delivered. The rest of the baby delivered without incident. A nuchal cord was encountered and reduced. After the baby was handed to the awaiting nurses, cord blood was obtained and the rest of the placenta was removed intact. The uterus was exteriorized and the incision closed in 2 layers. One oarejr-po-mimcj stitch was needed to complete hemostasis. It was returned to the abdomen and irrigation was performed. Thereafter, the rectus fascia was closed. Some difficulty encountered during the closure with some adhesions, but this was reduced and closed adequately with 0 Vicryl. The subcutaneous tissue and skin were closed with a running stitch of 3-0. The sponges, lap, and instruments count was correct x3. The patient was stable in the operating room and was taken to the recovery afterwards in stable condition. /[id number] ISAC/MODL
[2019-03-04] MEDS: Lactated Ringers 1,000 ML IV SCH ×3 (02:57→10:50)
[2019-03-04] MEDS: Ketorolac 30 MG/ML SDV IVPUSH SCH ×2 (04:33→11:13)
[2019-03-04] MEDS ORDERED: Ketorolac 30 MG/ML SDV IVPUSH PRN (05:00)
--- NOTE | 2019-03-04 14:39 | PCM.PNPP ---
- General Info Date of Service: 03/04/19 Functional Status: Reports: Pain Controlled - Review of Systems General: Reports: No Symptoms HEENT: Reports: No Symptoms Pulmonary: Reports: No Symptoms Cardiovascular: Reports: No Symptoms Gastrointestinal: Reports: No Symptoms Genitourinary: Reports: No Symptoms Musculoskeletal: Reports: No Symptoms Skin: Reports: No Symptoms Neurological: Reports: No Symptoms Psychiatric: Reports: No Symptoms - General Info Date of Service: 03/04/19 - Patient Data Vital Signs - Most Recent: Last Vital Signs Temp 97.7 F 03/03/19 23:18 Pulse 79 03/04/19 01:30 Resp 12 03/03/19 23:42 BP 115/72 03/04/19 01:30 Pulse Ox 100 03/03/19 23:42 Weight - Most Recent: 103.873 kg I&O - Last 24 Hours: Intake & Output 03/03/19 03/04/19 03/04/19 22:59 06:59 14:59 Intake Total 1507 Output Total 1000 850 Balance 507 -850 Lab Results - Last 24 Hours: Laboratory Results - last 24 hr 03/03/19 03/04/19 Range/Units 20:50 06:15 WBC 16.8 H (4.5-12.0) X10-3/uL RBC 3.51 (3.23-5.20) x10(6)uL Hgb 9.8 L (11.5-15.5) g/dL Hct 29.4 L (30.0-51.3) % MCV 83.6 (80-96) fL MCH 28.0 (27.7-33.6) pg MCHC 33.5 (32.2-35.4) g/dL RDW 16.0 H (11.5-15.5) % Plt Count 238 (125-369) X10(3)uL MPV 8.5 (7.4-10.4) fL Add Manual Diff Yes Neutrophils % (Manual) 86 H (46-82) % Band Neutrophils % 1 (0-6) % Lymphocytes % (Manual) 10 L (13-37) % Monocytes % (Manual) 3 L (4-12) % Anisocytosis Occasional Urine Color Yellow (YELLOW) Urine Appearance Clear (CLEAR) Urine pH 5.0 (5.0-6.5) Ur Specific [place] 1.020 (1.010-1.025) Urine Protein Negative (NEGATIVE) mg/dL Urine Glucose (UA) Normal (NORMAL) mg/dL Urine Ketones 15 H (NEGATIVE) mg/dL Urine Occult Blood Negative (NEGATIVE) Urine Nitrite Negative (NEGATIVE) Urine Bilirubin Negative (NEGATIVE) Urine Urobilinogen Normal (NEGATIVE) mg/dL Ur Leukocyte Esterase Negative (NEGATIVE) Urine RBC Not seen (0-5) Urine WBC 0-5 (0-5) Ur Squamous Epith Cells Moderate H (NS,R,O) Urine Bacteria Few H (NS) Med Orders - Current: Current Medications Diphenhydramine HCl (Benadryl) 25 mg IVPUSH Q6H PRN PRN Reason: Itching or Nausea Diphenhydramine HCl (Benadryl) 25 mg IV ONETIME PRN PRN Reason: Pruritus Ephedrine Sulfate (Ephedrine Sulfate) 5 mg IVPUSH ASDIRECTED PRN PRN Reason: Other Lactated Ringer's (Ringers, Lactated) 1,000 mls @ 125 mls/hr IV ASDIRECTED [facility] Last Admin: 03/03/19 21:37 Dose: 125 mls/hr Lactated Ringer's (Ringers, Lactated) 1,000 mls @ 250 mls/hr IV ASDIRECTED [facility] Last Admin: 03/04/19 10:50 Dose: 250 mls/hr Ketorolac Tromethamine (Toradol) 30 mg IVPUSH Q6H [facility] Stop: 03/08/19 23:20 Last Admin: 03/04/19 11:13 Dose: 30 mg Nalbuphine HCl (Nubain) 10 mg IVPUSH Q1H PRN PRN Reason: Pruritus Naloxone HCl (Narcan) 0.1 mg IVPUSH ONETIME PRN PRN Reason: Respiratory Depression Naloxone HCl (Narcan) 0.1 mg IVPUSH ONETIME PRN PRN Reason: Oversedation Ondansetron HCl (Zofran) 4 mg IVPUSH Q6H PRN PRN Reason: Nausea/Vomiting Sodium Chloride (Saline Flush) 10 ml FLUSH ASDIRECTED PRN PRN Reason: Keep Vein Open Discontinued Medications Cefazolin Sodium (Ancef) 2 gm IVPUSH ONETIME STA Stop: 03/03/19 21:17 Last Admin: 10/26/19 21:38 Dose: 2 gm Citric Acid/Sodium Citrate (Bicitra Solution) 30 ml PO ONETIME STA Stop: 03/03/19 21:17 Last Admin: 03/03/19 21:37 Dose: 30 ml Ketorolac Tromethamine (Toradol) 30 mg IVPUSH Q6H PRN PRN Reason: Pain Stop: 03/08/19 23:20 Scopolamine (Transderm-Scop) 1.5 mg TRDERM ONETIME ONE Stop: 03/03/19 21:18 Last Admin: 03/03/19 21:37 Dose: 1.5 mg - Infant Interaction Disposition, : [place] in Room with Family Support Person: - Recovery Exam Fundal Tone: Firm Fundal Level: At Umbilicus Fundal Placement: Midline Lochia Amount: Moderate Lochia Color: Rubra/Red Perineum Description: Edematous Episiotomy/Laceration: None Bladder Status: Indwelling Catheter in Place Urinary Elimination: Indwelling Catheter - Exam General: Alert, Oriented HEENT: Pupils Equal Neck: Supple Lungs: Clear to Auscultation, Normal Respiratory Effort Cardiovascular: Regular Rate, Regular Rhythm GI/Abdominal Exam: Normal Bowel Sounds, Soft, Non-Tender, No Organomegaly, No Distention, No Abnormal Bruit, No Mass, Pelvis Stable Extremities: Normal Inspection, Normal Range of Motion, Non-Tender, No Pedal Edema, Normal Capillary Refill Skin: Warm, Dry, Intact Wound/Incisions: Healing Well Neurological: No New Focal Deficit Psy/Mental Status: Alert, Normal Affect, Normal Mood - Problem List & Annotations (1) Previous section SNOMED Code(s): 737868859 Code(s): Z98.891 - HISTORY OF UTERINE SCAR FROM PREVIOUS SURGERY Status: Acute Current Visit: No (2) S/P repeat low transverse SNOMED Code(s): 506322784, 42582576, 498771009, 661740094, 900838495 Code(s): Z98.891 - HISTORY OF UTERINE SCAR FROM PREVIOUS SURGERY Status: Acute Current Visit: No (3) ADHD SNOMED Code(s): 489987663 Code(s): F90.9 - ATTENTION-DEFICIT HYPERACTIVITY DISORDER, UNSPECIFIED TYPE Status: Acute Current Visit: No Qualifiers: - Problem List Review Problem List Initiated/Reviewed/Updated: Yes - My Orders Last 24 Hours: My Active Orders 03/03/19 19:36 Resuscitation Status Routine 03/03/19 21:30 Lactated Ringers [Ringers, Lactated] 1,000 ml IV ASDIRECTED 03/03/19 21:33 Admission Status [Patient Status] [ADT] Routine Sodium Chloride 0.9% [Saline Flush] 10 ml FLUSH ASDIRECTED PRN Peripheral IV Insertion Adult [OM.PC] Routine 03/03/19 23:12 Intake and Output [RC] 06,14,22 RT Incentive Spirometry [RC] Q4HWA Vital Signs [RC] PER UNIT ROUTINE Naloxone [Narcan] 0.1 mg IVPUSH ONETIME PRN diphenhydrAMINE [Benadryl] 25 mg IVPUSH Q6H PRN ePHEDrine [ePHEDrine sulfate] 5 mg IVPUSH ASDIRECTED PRN 03/03/19 23:15 Lactated Ringers [Ringers, Lactated] 1,000 ml IV ASDIRECTED 03/04/19 05:00 Ketorolac [Toradol] 30 mg IVPUSH Q6H 03/04/19 14:37 Remove Johnson Catheter [Urinary Catheter Removal] [RC] Per Unit Routine Acetaminophen/oxyCODONE [Percocet 325-5 MG] 1 tab PO Q4H PRN 03/04/19 14:38 Discontinue Saline Lock [Peripheral IV Discontinue] [OM.PC] Routine 03/04/19 14:45 Ibuprofen [Motrin] 600 mg PO Q6H 03/04/19 Lunch Regular Diet [DIET] - Plan Plan:: Advance diet. DC Fluids and DC Johnson.Percocet for pain
[2019-03-04] MEDS: Acetaminophen/oxyCODONE 325-5 MG Tab PO PRN ×2 (15:40→21:03)
[2019-03-04] MEDS: Ibuprofen 600 MG Tab PO SCH ×2 (17:59→22:46)
[2019-03-05] MEDS: Ibuprofen 600 MG Tab PO SCH ×2 (05:46→10:54)
[2019-03-05] MEDS: Acetaminophen/oxyCODONE 325-5 MG Tab PO PRN ×2 (05:49→10:54)
[2019-03-05 08:43] VITALS: BP 125/66; PULSE 98
--- NOTE | 2019-03-05 14:02 | DISCH ---
DISCHARGE DATE: 03/05/2019 REASON FOR ADMISSION: Labor at term. DISCHARGE DIAGNOSES: 1. Repeat . 2. Attention deficit hyperactivity disorder. 3. Depression. BRIEF HISTORY AND HOSPITAL COURSE: A 33-year-old female was admitted at 37-1/2 weeks after complaining of uterine contractions. She was scheduled for an elective section on the . As such, we did the on the by myself and Dr. Pfeiffer. Postoperatively, she did very well, and today she has no complaints with the exception of some pain. The bleeding has improved. She has no constipation and she has been walking around for the last 24 hours. She asks to go home today. DISCHARGE MEDICATIONS: She will go home on; 1. Percocet 1 tablet every 6 hours p.r.n., 15 tablets. 2. Motrin 600 mg p.o. q.i.d. 3. She will also continue the regular home medications. FOLLOWUP: She will see me in 2 weeks. DISCHARGE TIME: 35 minutes. /[id number] ISAC/BURKE
[2019-03-05] MEDS ORDERED: Lactated Ringers 1,000 ML IV ONE (14:59)
[2019-03-05] MEDS ORDERED: Acetaminophen 1,000 MG/100 ML Infusion Bottle IV ONE (14:59)
[2019-03-05] MEDS ORDERED: Morphine PF 10 MG/10 ML SDV IV ONE (14:59)
[2019-03-05] MEDS ORDERED: Oxytocin 10 Units/1 ML SDV IV ONE (14:59)
[2019-03-05] MEDS ORDERED: Ketorolac 30 MG/ML SDV IVPUSH ONE (14:59)
[2019-03-05] MEDS ORDERED: Ondansetron 4 MG/2 ML SDV IVPUSH ONE (14:59)
[2019-03-05] MEDS ORDERED: Dexamethasone 4 MG/ML 5 ML MDV IVPUSH ONE (14:59)
[2019-03-05] MEDS ORDERED: Phenylephrine 1% 10 MG/ML SDV IV ONE (14:59)
[2019-03-05] MEDS ORDERED: Bupivacaine 0.75%/D5W 2 ML Amp INJECT ONE (14:59)
--- NOTE | 2019-03-07 09:56 | PCM.LDHP ---
L&D History of Present Illness - General Date of Service: 03/03/19 Admit Problem/Dx: Patient Status Order with Admit Dx/Problem 03/03/19 19:36 Patient Status [ADT] Routine 03/03/19 21:33 Admission Status [Patient Status] [ADT] Routine Admission Diagnosis/Problem Admission Diagnosis/Problem Source of Information: Patient History Limitations: Reports: No Limitations - History of Present Illness Introduction:: 33 yo at 37 and 1/2 weeks here because of active labor. Symptoms started earlier in the evening,and she reports contractions every 3-5 min. She is scheduled for an elective repeat C section on 03/07/2019. She has mild polyhydramnios, and ADHD,MDD ,stable. She takes Adderall,even during this .Denies vaginal leakage of fluid or bleeding. Timing/Duration: Reports: gradual onset Location, : Reports: Uterus Quality: Reports: Ache Pain Score: 7 Improves with: Reports: None Worsens with: Reports: None Associated Symptoms: Denies: vaginal bleeding, vaginal clots, vaginal tissue - Related Data Allergies/Adverse Reactions: Allergies Allergy/AdvReac Type Severity Reaction Status Date / Time lamotrigine [From Lamictal] Allergy Rash Verified 03/03/19 23:00 Home Medications: Home Meds PNV95/Ferrous Fumarate/FA [ Tablet] 1 each PO DAILY 04/20/15 [History] Dextroamphetamine/Amphetamine [Adderall Xr 30 mg Capsule] 1 cap PO DAILY [History] Sertraline [Zoloft] 50 mg PO DAILY 10/29/16 [History] Ibuprofen [Motrin] 600 mg PO Q6H PRN #28 tab 10/13/17 [Rx] Dextroamphetamine/Amphetamine [Adderall 10 mg Tablet] 10 mg PO DAILY 03/04/19 [ History] Acetaminophen/oxyCODONE [Percocet 325-5 MG] 1 tab PO Q4H PRN #15 tablet [Rx] Ibuprofen [Motrin] 600 mg PO Q6H tablet 03/05/19 [Rx] Past Medical History - Past Health History Medical/Surgical History: Denies 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 Dermatologic History: Reports: Eczema - Infectious Disease History Infectious Disease History: Reports: Chicken Pox - Past Surgical History Female Surgical History: Reports: Section Social & Family History - Family History Family Medical History: Noncontributory Respiratory: Reports: COPD OBGYN: Reports: Neurological: Reports: CVA Psychiatric: Reports: Other (See Below) Other Psychiatric Family History: Alcholism Endocrine/Metabolic: Reports: Diabetes, Type I Oncologic: Reports: Non-Hodgkin's Lymphoma - Tobacco Use Smoking Status *Q: Former Smoker Used Tobacco, but Quit: Yes Month/Year Tobacco Last Used: 2015 Second Hand Smoke Exposure: No - Caffeine Use Caffeine Use: Reports: Coffee - Recreational Drug Use Recreational Drug Use: No H&P Review of Systems - Review of Systems: Review Of Systems: ROS reveals no pertinent complaints other than HPI. L&D Exam - Exam Exam: See Below - Vital Signs Vital Signs: Last Vital Signs Temp 98.5 F 03/05/19 08:00 Pulse 98 03/05/19 08:00 Resp 17 03/05/19 08:00 BP 125/66 03/05/19 08:00 Pulse Ox 98 03/05/19 08:00 Weight: 103.873 kg - OB Specific Contraction Duration (sec): 30-50 Contraction Frequency (min): 2-6 Contraction Intensity: Mild to Moderate Movement: Active Heart Tones: Present Heart Rate (FHR) Variability: Moderate (6-25 bmp) Presentation: Right Occiput Anterior (FRITZ) - Jose Score Jose Score Cervix Position: Midposition Jose Score Consistency: Medium Jose Score Dilation: 1-2 cm - Exam General: Alert, Oriented HEENT: PERRLA, Conjunctiva Clear, EACs Clear, EOMI, Hearing Intact, Mucosa Moist & [place], Nares Patent, Normal Nasal Septum, Posterior Pharynx Clear, TMs Clear Neck: Supple, Trachea Midline Lungs: Clear to Auscultation, Normal Respiratory Effort Cardiovascular: Regular Rate, Regular Rhythm GI/Abdominal Exam: Normal Bowel Sounds, Soft, Non-Tender, No Organomegaly, No Distention, No Abnormal Bruit, No Mass, Pelvis Stable Rectal Exam: Normal Exam, Normal Rectal Tone Genitourinary: Normal external exam, Normal bimanual exam, Normal speculum exam Back Exam: Normal Inspection, Full Range of Motion Extremities: Normal Inspection, Normal Range of Motion, Non-Tender, No Pedal Edema, Normal Capillary Refill Skin: Warm, Dry, Intact Neurological: Cranial Nerves Intact, Reflexes Equal Bilateral Psychiatric: Alert, Normal Affect, Normal Mood - Patient Data Result Diagrams: 03/04/19 06:15 - Problem List (1) Previous section SNOMED Code(s): 201066803 ICD Code: Z98.891 - HISTORY OF UTERINE SCAR FROM PREVIOUS SURGERY Status: Acute (2) S/P repeat low transverse SNOMED Code(s): 763215588, 26727103, 482596012, 939591771, 960951999 ICD Code: Z98.891 - HISTORY OF UTERINE SCAR FROM PREVIOUS SURGERY Status: Acute (3) ADHD SNOMED Code(s): 262667069 ICD Code: F90.9 - ATTENTION-DEFICIT HYPERACTIVITY DISORDER, UNSPECIFIED TYPE Status: Acute Qualifiers: (4) Term SNOMED Code(s): 01581143 ICD Code: Z34.90 - ENCNTR FOR SUPRVSN OF NORMAL , UNSP, UNSP TRIMESTER Status: Acute (5) Polyhydramnios affecting SNOMED Code(s): 45201739, 815172528 ICD Code: O40.9XX0 - POLYHYDRAMNIOS, UNSP TRIMESTER, NOT APPLICABLE OR UNSP Status: Acute (6) S/P repeat low transverse SNOMED Code(s): 828910444, 96257271, 905026569, 901803129, 384546674 ICD Code: Z98.891 - HISTORY OF UTERINE SCAR FROM PREVIOUS SURGERY Status: Acute (7) Active labor at term SNOMED Code(s): 25020055 ICD Code: [id number] - Status: Acute Problem List Initiated/Reviewed/Updated: Yes Assessment/Plan Comment:: Proceed for C section. Patient aware of risks and benefits
== END 2019-03-05 15:00 | disposition home or self-care (01) | DRG 540 ==
LOC: FB.OBCHECK 19:28 → FB.OB 19:30
PROVIDERS: ADMIT Family Medicine; ATTEND Family Medicine
PROC: 10D00Z1 Extraction of Products of Conception, Low, Open Approach (ICD-10-PCS; principal; 2019-03-03)
DX: O34.211 Maternal care for low transverse scar from previous cesarean delivery (principal); Z37.0 Single live birth; O40.3XX0 Polyhydramnios, third trimester, not applicable or unspecified; O99.344 Other mental disorders complicating childbirth; F98.8 Other specified behavioral and emotional disorders with onset usually occurring in childhood and adolescence; F32.9 Major depressive disorder, single episode, unspecified; O36.63X0 Maternal care for excessive fetal growth, third trimester, not applicable or unspecified; O69.81X0 Labor and delivery complicated by cord around neck, without compression, not applicable or unspecified; Z3A.37 37 weeks gestation of pregnancy; Z87.891 Personal history of nicotine dependence
CPT/HCPCS: 36415; 81001; 85025; 88307; 99211; A9270-GY; J0131; J0690; J1100; J1885; J2270; J2370; J2405; J2590; J7120

== ENCOUNTER 2021-05-04 13:23 | Emergency (ER) | payer MEDICAID ==
[2021-05-04] MEDS ORDERED: Ketorolac 30 MG/ML SDV IM STA (13:30)
[2021-05-04] MEDS ORDERED: Lidocaine 2% Viscous Solution 15 ML Cup PO ONE (13:31)
--- NOTE | 2021-05-04 13:48 | EDM.PDOC ---
ED HPI GENERAL MEDICAL PROBLEM - General Stated Complaint: ABSCESS TOOTH Time Seen by Provider: 05/04/21 13:30 Source of Information: Reports: Patient History Limitations: Reports: No Limitations - History of Present Illness INITIAL COMMENTS - FREE TEXT/NARRATIVE: Patient presented to the ED because of dental pain which started 3 days ago and is getting worse. the pain is 10/10, she took OTC aleve and tylenol without relief. - Related Data Allergies Allergy/AdvReac Type Severity Reaction Status Date / Time lamotrigine [From Lamictal] Allergy Rash Verified 03/03/19 23:00 Home Meds: Home Meds Pnv No.95/Ferrous Fum/Folic AC [ Tablet] 1 each PO DAILY 04/20/15 [History] Dextroamphetamine/Amphetamine [Adderall Xr 30 mg Capsule] 1 cap PO DAILY 10/14/16 [History] Sertraline [Zoloft] 50 mg PO DAILY 10/29/16 [History] Ibuprofen [Motrin] 600 mg PO Q6H PRN #28 tab 10/13/17 [Rx] Dextroamphetamine/Amphetamine [Adderall 10 mg Tablet] 10 mg PO DAILY 03/04/19 [History] Acetaminophen/oxyCODONE [Percocet 325-5 MG] 1 tab PO Q4H PRN #15 tablet 03/05/19 [Rx] Ibuprofen [Motrin] 600 mg PO Q6H tablet 03/05/19 [Rx] Amoxicillin 875 mg PO BID #20 tablet 05/04/21 [Rx] Past Medical History - Past Health History Medical/Surgical History: Denies 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 Dermatologic History: Reports: Eczema - Infectious Disease History Infectious Disease History: Reports: Chicken Pox - Past Surgical History Female Surgical History: Reports: Section Social & Family History - Family History Family Medical History: No Pertinent Family History Respiratory: Reports: COPD OBGYN: Reports: Neurological: Reports: CVA Psychiatric: Reports: Other (See Below) Other Psychiatric Family History: Alcholism Endocrine/Metabolic: Reports: Diabetes, Type I Oncologic: Reports: Non-Hodgkin's Lymphoma - Caffeine Use Caffeine Use: Reports: Coffee ED ROS ENT - Review of Systems Review Of Systems: See Below Constitutional: Reports: No Symptoms HEENT: Reports: Dental Pain Respiratory: Reports: No Symptoms Cardiovascular: Reports: No Symptoms Endocrine: Reports: No Symptoms GI/Abdominal: Reports: No Symptoms : Reports: No Symptoms Musculoskeletal: Reports: No Symptoms Skin: Reports: No Symptoms Neurological: Reports: No Symptoms ED EXAM, ENT - Physical Exam Exam: See Below Exam Limited By: No Limitations General Appearance: Alert, No Apparent Distress Ears: Normal External Exam, Normal Canal, Hearing Grossly Normal Nose: Normal Inspection, Normal Mucousa, No Blood Mouth/Throat: Normal Inspection, Dental Pain, Gum Swelling Head: Atraumatic, Normocephalic Neck: Normal Inspection, Supple, Non-Tender, Full Range of Motion Respiratory/Chest: No Respiratory Distress, Lungs Clear, Normal Breath Sounds, No Accessory Muscle Use, Chest Non-Tender Cardiovascular: Normal Peripheral Pulses, Regular Rate, Rhythm, No Edema, No Gallop GI/Abdominal: Normal Bowel Sounds, Soft, Non-Tender, No Organomegaly, No Distention, No Abnormal Bruit Back: Normal Inspection, Full Range of Motion Extremities: Normal Inspection, Normal Range of Motion, Non-Tender, No Pedal Edema, Normal Capillary Refill Neurological: Alert, Oriented, CN II-XII Intact, Normal Cognition, Normal Reflexes, No Motor/Sensory Deficits Psychiatric: Normal Affect, Normal Mood Skin: Warm Course - Vital Signs Text/Narrative:: Viscous lidocaine Toradol 60 mg IM x1 - Orders/Labs/Meds Meds: Medications Discontinued Medications Generic Name Dose Route Start Last Admin Trade Name [place] PRN Reason Stop Dose Admin Ketorolac Tromethamine 60 mg 05/04/21 13:30 05/04/21 13:43 Ketorolac 30 Mg/Ml Sdv IM 05/04/21 13:31 60 mg NOW STA Administration Lidocaine HCl 15 ml 05/04/21 13:31 05/04/21 13:44 Lidocaine 2% Viscous Solution 15 Ml Cup PO 05/04/21 13:32 15 ml ONETIME ONE Administration Departure - Departure Time of Disposition: 14:00 Disposition: Home, Self-Care 01 Condition: Good Clinical Impression: Pain due to dental caries, Gingivitis - Discharge Information Prescriptions: Amoxicillin 875 mg PO BID #20 tablet Instructions: Gingivitis, [id number], Dental Caries, Adult, [id number] Referrals: Lisha Hawk NP [Primary Care Provider] - Additional Instructions: Please read discharge instructions on dental pain and gingivitis Gurgle with salt and water Take ibuprofen 800 mg with tylenol 1000 mg every 8 hours as needed for pain Apply the viscous lidocaine as instructed for pain that you can't tolerate Follow up with your dentis as soon as you can
[2021-05-05 00:14] VITALS: BP 145/106; PULSE 87
== END 2021-05-04 14:10 | disposition home or self-care (01) ==
LOC: FB.ED 13:23
DX: K02.9 Dental caries, unspecified (principal); K05.10 Chronic gingivitis, plaque induced; Z88.8 Allergy status to other drugs, medicaments and biological substances; Z79.899 Other long term (current) drug therapy
CPT/HCPCS: 96372; 99283; A9270-GY; J1885

== ENCOUNTER 2022-02-21 09:26 | Emergency (ER) | payer MEDICAID ==
[2022-02-21] MEDS ORDERED: Lidocaine 2% Viscous Solution 15 ML UD PO ONE (09:43)
[2022-02-21] MEDS ORDERED: Ketorolac 30 MG/ML SDV IM STA (09:43)
[2022-02-21] MEDS ORDERED: Amoxicillin/Clavulanate K 875-125 MG Tab PO ONE (09:43)
[2022-02-21 12:31] VITALS: BP 151/94; PULSE 91
== END 2022-02-21 10:53 | disposition home or self-care (01) ==
LOC: FB.ED 09:26
DX: K04.7 Periapical abscess without sinus (principal); K08.89 Other specified disorders of teeth and supporting structures; F98.8 Other specified behavioral and emotional disorders with onset usually occurring in childhood and adolescence; Z79.899 Other long term (current) drug therapy
CPT/HCPCS: 96372; 99282; A9270; J1885